=== PATIENT | male | born 1960 | race Caucasian/White ===

== ENCOUNTER 2017-06-13 03:38 | Emergency (ER) | payer SELFPAY ==
[2017-06-13 03:41] VITALS: BP 154/68; PULSE 75; RESP 18; TEMP 97.5; O2SAT 100
--- NOTE | 2017-06-13 04:58 | PD ---
HPI Chief Complaint: Flank/Kidney Pain Time Seen by Provider: 04:23 Travel History International Travel<30 days: No Contact w/Intl Traveler<30days: No Traveled to known affect area: No History of Present Illness HPI Patient is 56-year-old male who is coming in with onset of left-sided back pain for the last few days and now it is radiating around to his left lateral side he has had dysuria burning and frequency and hesitancy in the last 2 days. The pain was dull and aching in the back and now became suddenly sharp and pressure- like in his left groin. He has a history of diverticuli discovered on colonoscopy years ago never had had a flare of diverticulitis. He has had kidney stones in the past that felt similar to this episode tonight and he thinks it is similar in the same. He never had to have a stent or lithotripsy he passed those stones without any assistance from urology to make pain pressure -like radiating around from the left back to the groin nauseous due to the pain he has not seen another doctor for this pain the pain back pain getting gradually worse and now suddenly sharpening and worsening as it radiated down towards the left groin PFSH Past Medical History Diminished Hearing: No Kidney Stones: Yes Past Surgical History Cholecystectomy: Yes Other Surgery: Yes (BILAT SHOULDER REPLACEMENT ) Social History Alcohol Use: No Tobacco Use: No Substance Use: No Allergies-Medications (Allergen,Severity, Reaction): Coded Allergies: No Known Allergies (Unverified , 06/13/17) Reported Meds & Prescriptions Reported Meds & Active Scripts Active Zofran Odt (Ondansetron Odt) 4 Mg Tab 4 Mg SL Q6HR PRN Cipro (Ciprofloxacin HCl) 500 Mg Tab 500 Mg PO BID Flomax (Tamsulosin HCl) 0.4 Mg Cap 0.4 Mg PO HS Ibuprofen 600 Mg Tab 600 Mg PO Q6H PRN Percocet (Oxycodone-Acetaminophen) 5-325 mg Tab 1 Tab PO Q6H PRN Review of Systems Except as stated in HPI: all other systems reviewed are Neg Gastrointestinal: Positive: Abdominal Pain (left sided back CVA to left groin pain ) Genitourinary: Positive: Urgency, Dysuria, Flank Pain Physical Exam Narrative GENERAL: Nontoxic-appearing but he seems very uncomfortable lying in the bed trying to find a comfortable position SKIN: Warm and dry. HEAD: Atraumatic. Normocephalic. EYES: Pupils equal and round. No scleral icterus. No injection or drainage. ENT: No nasal bleeding or discharge. Mucous membranes pink and moist. NECK: Trachea midline. No JVD. CARDIOVASCULAR: Regular rate and rhythm. RESPIRATORY: No accessory muscle use. Clear to auscultation. Breath sounds equal bilaterally. GASTROINTESTINAL: Abdomen patient has tenderness to the lower left abdomen and left flank MUSCULOSKELETAL: Extremities without clubbing, cyanosis, or edema. No obvious deformities. NEUROLOGICAL: Awake and alert. No obvious cranial nerve deficits. Motor grossly within normal limits. Five out of 5 muscle strength in the arms and legs. Normal speech. PSYCHIATRIC: Appropriate mood and affect; insight and judgment normal. Data Data Last Documented VS Vital Signs Date Time Temp Pulse Resp B/P (MAP) Pulse Ox O2 Delivery O2 Flow Rate FiO2 06/13/17 05:13 93 16 136/74 (94) 95 Room Air 06/13/17 03:41 97.5 Orders Orders Urinalysis - C+S If Indicated (06/13/17 04:26) Ct Abd/Pel W/O Iv Contrast (06/13/17 ) Ketorolac Inj (Toradol Inj) (06/13/17 05:00) Morphine Inj (Morphine Inj) (06/13/17 05:00) Sodium Chlor 0.9% 1000 Ml Inj (Ns 1000 M (06/13/17 05:00) Sodium Chlor 0.9% 1000 Ml Inj (Ns 1000 M (06/13/17 05:00) Ondansetron Inj (Zofran Inj) (06/13/17 05:15) Ondansetron Inj (Zofran Inj) (06/13/17 05:03) Morphine Inj (Morphine Inj) (06/13/17 06:00) Complete Blood Count With Diff (06/13/17 05:46) Comprehensive Metabolic Panel (06/13/17 05:46) Ondansetron Inj (Zofran Inj) (06/13/17 06:00) Ciprofloxacin (Cipro) (06/13/17 06:15) Sodium Chlor 0.9% 1000 Ml Inj (Ns 1000 M (06/13/17 06:30) Hydromorphone Pf Inj (Dilaudid Pf Inj) (06/13/17 07:00) Hydromorphone Pf Inj (Dilaudid Pf Inj) (06/13/17 07:00) Labs Laboratory Tests Test 06/13/17 04:30 06/13/17 05:50 Urine Color YELLOW Urine Turbidity HAZY Urine pH 5.5 Urine Specific [place] 1.026 Urine Protein 30 mg/dL Urine Glucose (UA) NEG mg/dL Urine Ketones 40 mg/dL Urine Occult Blood LARGE Urine Nitrite NEG Urine Bilirubin NEG Urine Urobilinogen LESS THAN 2.0 MG/DL Urine Leukocyte Esterase TRACE Urine RBC 84 /hpf Urine WBC 4 /hpf Urine Calcium Oxalate Crystals FEW /hpf Urine Hyaline Casts 3 /lpf Urine Mucus MANY /lpf Microscopic Urinalysis Comment CULT NOT INDICATED White Blood Count 15.1 TH/MM3 Red Blood Count 4.21 MIL/MM3 Hemoglobin 12.9 GM/DL Hematocrit 37.4 % Mean Corpuscular Volume 88.8 FL Mean Corpuscular Hemoglobin 30.7 PG Mean Corpuscular Hemoglobin Concent 34.5 % Red Cell Distribution Width 12.7 % Platelet Count 250 TH/MM3 Mean Platelet Volume 7.7 FL Neutrophils (%) (Auto) 91.9 % Lymphocytes (%) (Auto) 4.3 % Monocytes (%) (Auto) 3.3 % Eosinophils (%) (Auto) 0.1 % Basophils (%) (Auto) 0.4 % Neutrophils # (Auto) 13.9 TH/MM3 Lymphocytes # (Auto) 0.7 TH/MM3 Monocytes # (Auto) 0.5 TH/MM3 Eosinophils # (Auto) 0.0 TH/MM3 Basophils # (Auto) 0.1 TH/MM3 CBC Comment DIFF FINAL Differential Comment Blood Urea Nitrogen 15 MG/DL Creatinine 1.18 MG/DL Random Glucose 120 MG/DL Total Protein 6.3 GM/DL Albumin 3.5 GM/DL Calcium Level 7.9 MG/DL Alkaline Phosphatase 59 U/L Aspartate Amino Transf (AST/SGOT) 16 U/L Alanine Aminotransferase (ALT/SGPT) 22 U/L Total Bilirubin 0.4 MG/DL Sodium Level 142 MEQ/L Potassium Level 3.6 MEQ/L Chloride Level 110 MEQ/L Carbon Dioxide Level 23.6 MEQ/L Anion Gap 8 MEQ/L Estimat Glomerular Filtration Rate 64 ML/MIN [facility] Medical Decision Making Medical Screen Exam Complete: Yes Emergency Medical Condition: Yes Differential Diagnosis Differential diagnosis is left flank pain due to muscle strain left flank pain due to renal stone obstructing intra-ureter versus UTI versus pyelonephritis versus diverticulitis versus pancreatitis versus other Narrative Course Patient has large blood in his urine patient has flank pain that radiates to the left groin which correlates with kidney stone patient has a CT that shows a 2 mm UV junction stone on the left correlates with his pain presentation patient is given Toradol IV a liter fluid to morphine his reports he is out of pain when he returns from CAT scan he is in pain again he gets for morphine another liter fluid and Zofran 2 patient is given prescriptions for Flomax ibuprofen Cipro Percocet and a strainer to P in 2 to look for the urine stone and he will call the urologist research instrumentation technician Dr. Avitia for follow-up Diagnosis Primary Impression: Kidney stone Referrals: Miguel Avitia MD Patient Instructions: General Instructions, Kidney Stones (ED) Additional Instructions: Take the ibuprofen for the pain. Take Flomax each night to help push the stone into your bladder and urinate into the strainer. Follow up with Dr. Avitia the urologist. Return to the ER for inability to tolerate your medication uncontrolled due to vomiting , or if you develop fevers. otherwise follow-up with the urologist as an outpatient Scripts Ondansetron Odt (Zofran Odt) 4 Mg Tab 4 MG SL Q6HR Y for Nausea/Vomiting, #15 TAB 0 Refills Prov: Fernando De La Vega MD 06/13/17 Ciprofloxacin (Cipro) 500 Mg Tab 500 MG PO BID for Infection, #14 TAB 0 Refills Prov: Fernando De La Vega MD 06/13/17 Tamsulosin (Flomax) 0.4 Mg Cap 0.4 MG PO HS for Manage Prostate Problems, #20 CAP 0 Refills Prov: Fernando De La Vega MD 06/13/17 Ibuprofen (Ibuprofen) 600 Mg Tab 600 MG PO Q6H Y for Pain/Inflammation, #30 TAB 0 Refills Prov: Fernando De La Vega MD 06/13/17 Oxycodone-Acetaminophen (Percocet) 5-325 mg Tab 1 TAB PO Q6H Y for PAIN, #12 TAB 0 Refills Prov: Fernando De La Vega MD 06/13/17 Disposition: 01 DISCHARGE HOME Condition: Good Fernando De La Vega MD Jun 13, 2017 04:58
[2017-06-13] MEDS ORDERED: KETOROLAC TROMETHAMINE 30 MG/ML (IVP) VIAL IV PUSH ONE (05:00)
[2017-06-13] MEDS ORDERED: SODIUM CHLOR 0.9% 1000 ML INJ 1,000 ML IV ONE ×3 (05:00→06:30)
[2017-06-13] MEDS ORDERED: MORPHINE SULFATE 2 MG/ML SYRINGE IV PUSH ONE (05:00)
[2017-06-13] MEDS ORDERED: ONDANSETRON HCL 4 MG/2 ML VIAL ONE (05:03)
[2017-06-13 05:13] VITALS: BP 136/74; PULSE 93; RESP 16; O2SAT 95
[2017-06-13] MEDS ORDERED: ONDANSETRON HCL 4 MG/2 ML VIAL IV PUSH ONE ×2 (05:15→06:00)
[2017-06-13 05:20] LABS: BILIRUBIN, URINE NEG (NEG); BLOOD, URINE LARGE (NEG); CALCIUM OXALATE CRYSTALS,URINE FEW /hpf; GLUCOSE,URINE NEG (NEG); HYALINE CAST, URINE 3 /lpf (RARE); KETONE, URINE 40 mg/dL (NEG); MUCUS URINE MANY /lpf (OCC); NITRITE,URINE NEG (NEG); PH, URINE 5.5 (5.0-8.5); URINE COLOR YELLOW (YELLW/STRAW); URINE LEUKOCYTE ESTERASE TRACE (NEG)
--- NOTE | 2017-06-13 05:57 | RADRPT ---
EXAM DATE/TIME: 06/13/2017 05:34 [place] COMPARISON: No previous studies available for comparison. INDICATIONS : Left flank pain. ORAL CONTRAST: No oral contrast ingested. RADIATION DOSE: 8.40 CTDIvol (mGy) MEDICAL HISTORY : Renal calculi. SURGICAL HISTORY : Lumbar spine surgery ENCOUNTER: Initial ACUITY: 1 day PAIN SCALE: 7/10 LOCATION: Left flank TECHNIQUE: Volumetric scanning of the abdomen and pelvis was performed. Using automated exposure control and ad justment of the mA and/or kV according to patient size, radiation dose was kept as low as reasonably achievable to obtain optimal diagnostic quality images. DICOM format image data is available electro nically for review and comparison. FINDINGS: Examination of the lung bases demonstrates no abnormality. No pleural fluid is identified. No pulmona ry nodules are present. The liver and spleen are normal in size and no focal defects are identified. Multiple calcified granulomas are present in the spleen. The gallbladder is absent. The pancreas demo nstrates normal contour without evidence of mass or ductal dilatation. There multiple small stones in both kidneys measuring no more than 2 mm with a left uterovesical junction stone with mild hydroneph rosis measuring 2 mm. There is diverticulosis without evidence of diverticulitis. CONCLUSION: 1. 2 mm left ureterovesical junction stone with mild hydronephrosis Carl Lin MD on June 13, 2017 at 5:53 Board Certified Radiologist. This report was verified electronically.
[2017-06-13] MEDS ORDERED: MORPHINE SULFATE 4 MG/ML INJ IV PUSH ONE (06:00)
[2017-06-13] MEDS ORDERED: PERC5TAB12 PO (06:09)
[2017-06-13] MEDS ORDERED: TAMS5CAP PO (06:09)
[2017-06-13] MEDS ORDERED: IBUP-232 PO (06:09)
[2017-06-13 06:14] LABS: AUTOMATED NEUTROPHIL # 13.9 TH/MM3 (1.8-7.7); BASOPHIL # 0.1 TH/MM3 (0-0.2); BASOPHIL % 0.4 % (0.0-2.0); EOSINOPHIL % 0.1 % (0.0-4.0); HEMATOCRIT 37.4 % (39.0-51.0); HEMOGLOBIN 12.9 GM/DL (13.0-17.0); LYMPH % 4.3 % (9.0-44.0); LYMPHOCYTE # 0.7 TH/MM3 (1.0-4.8); MEAN CELL VOLUME 88.8 FL (80.0-100.0); MEAN CORPUSCULAR HEMOGLOBIN 30.7 PG (27.0-34.0); MEAN CORPUSCULAR HGB CONC 34.5 % (32.0-36.0); MEAN PLATELET VOLUME 7.7 FL (7.0-11.0); MONO % 3.3 % (0.0-8.0); MONOCYTE # 0.5 TH/MM3 (0-0.9); NEUT % 91.9 % (16.0-70.0); PLATELET COUNT 250 TH/MM3 (150-450); RED BLOOD COUNT 4.21 MIL/MM3 (4.50-5.90); RED CELL DISTRIBUTION WIDTH 12.7 % (11.6-17.2); WHITE BLOOD COUNT 15.1 TH/MM3 (4.0-11.0)
[2017-06-13] MEDS ORDERED: CIPROFLOXACIN 500 MG TAB PO ONE (06:15)
[2017-06-13] MEDS ORDERED: CIPR-9 PO (06:17)
[2017-06-13] MEDS ORDERED: ZOFR4TAB3 SL (06:19)
[2017-06-13 06:22] LABS: ALBUMIN 3.5 GM/DL (3.4-5.0); ALT (GPT) 22 U/L (12-78); AST (GOT) 16 U/L (15-37); BICARBONATE 23.6 MEQ/L (21.0-32.0); BLOOD UREA NITROGEN 15 MG/DL (7-18); CALCIUM 7.9 MG/DL (8.5-10.1); CHLORIDE 110 MEQ/L (98-107); CREATININE 1.18 MG/DL (0.60-1.30); GLOMERULAR FILTRATION RATE 64 ML/MIN (>89); GLUCOSE,RANDOM 120 MG/DL (74-106); SODIUM (NA) 142 MEQ/L (136-145)
[2017-06-13 06:25] LABS: ALKALINE PHOSPHATASE 59 U/L (45-117); TOTAL BILIRUBIN ADULT 0.4 MG/DL (0.2-1.0); TOTAL PROTEIN 6.3 GM/DL (6.4-8.2)
[2017-06-13] MEDS ORDERED: HYDROmorphone HCL PF 1 MG/ML VIAL IV PUSH ONE (07:00)
[2017-06-13] MEDS ORDERED: HYDROmorphone HCL PF 2 MG/ML VIAL ONE (07:00)
[2017-06-13 07:41] VITALS: RESP 17
[2017-06-13 07:55] VITALS: BP 133/77; TEMP 97.8
== END 2017-06-13 07:55 | disposition home or self-care (01) ==
LOC: NEPE 03:38
DX: N20.0 Calculus of kidney (principal)
CPT/HCPCS: 74176; 80053; 81001; 85025; 96361; 96374; 96375; 96376; 99284; J1170; J1885; J2270; J2405; J7030